=== PATIENT | female | born 1965 | race Caucasian/White ===

== ENCOUNTER 2018-11-06 06:50 | Day surgery (SDC) | payer OTHER ==
[2018-11-06] VITALS (18 sets, daily range): BP systolic 104–151; BP diastolic 46–76; PULSE 56–76; RESP 12–32; Ht 157.5 cm; Wt 82.0 kg
[~2018-11-06] VITALS: Ht 157.5 cm; Wt 82.0 kg
[2018-11-06] MEDS ORDERED: NEOSTIGMINE 10 MG INJ ONE (07:00)
[2018-11-06] MEDS ORDERED: AMLO5TAB4 PO (08:21)
[2018-11-06] MEDS ORDERED: ASPI81TA52 PO (08:22)
[2018-11-06] MEDS ORDERED: SIMV20TA PO (08:22)
[2018-11-06] MEDS ORDERED: PANT40TA3 PO (08:23)
[2018-11-06] MEDS ORDERED: ENAL10TA PO (08:23)
[2018-11-06] MEDS ORDERED: TOPI25TA10 PO (08:24)
[2018-11-06] MEDS ORDERED: CEFAZOLIN 2 GM/50 ML (PMX) 50 ML IVPB ONE (09:00)
[2018-11-06] MEDS ORDERED: SOD CHLORIDE 0.9% 1,000 ML IV SCH (09:00)
[2018-11-06] MEDS ORDERED: CEFAZOLIN 1 GM INJ ONE (09:35)
[2018-11-06] MEDS ORDERED: PROPOFOL 20 ML ONE (09:35)
[2018-11-06] MEDS ORDERED: GLYCOPYRROLATE 0.4 MG INJ ONE (09:35)
[2018-11-06] MEDS ORDERED: ROCURONIUM 50 MG INJ ONE (09:35)
[2018-11-06] MEDS ORDERED: DEXAMETHASONE 4 MG/ML 5 ML INJ ONE (09:36)
[2018-11-06] MEDS ORDERED: FENTAnyl 50 MCG/ML VIAL ONE (09:36)
[2018-11-06] MEDS ORDERED: ONDANSETRON 4 MG INJ ONE (09:36)
[2018-11-06] MEDS ORDERED: MIDAZOLAM 1 MG/ML 2 ML INJ ONE (09:36)
[2018-11-06] MEDS ORDERED: ROPIVACAINE 0.5 % 30 ML VIAL ONE (09:43)
--- NOTE | 2018-11-06 10:09 | PREAC ---
Date/Time of Note Date/Time of Note DATE: 11/06/18 TIME: 10:08 Anesthesia Eval and Record Evaluation Time Pre-Procedure Interview DATE: 11/06/18 TIME: 10:08 Age 53 Sex female NPO: 8 hrs Preoperative diagnosis GALL BLADER POLYP, SLUDGE Planned procedure LAP PARDEEP Past Medical History Past Medical History: Includes Cardio: HTN, Dyslipidemia Endo: Hyperthyroid GI: GERD Surgery & Anesthesia Issues No known issue Meds Anticoagulation: No Beta Yesenia within 24 hr: No Reason Beta Yesenia not given: Pt. not on B-Yesenia Reported Medications Topiramate* (Topiramate*) 25 Mg Tablet, 25 MG PO BID, TAB 11/06/18 Pantoprazole* (Protonix*) 40 Mg Tablet.dr, 40 MG PO DAILY, TAB 11/06/18 Enalapril Maleate* (Enalapril Maleate*) 10 Mg Tablet, 10 MG PO DAILY, TAB 11/06/18 Simvastatin* (Zocor*) 20 Mg Tablet, 20 MG PO QHS, #30 TAB 11/06/18 Aspirin (Low Dose Aspirin) 81 Mg Tablet.dr, 81 MG PO DAILY, #30 TAB 11/06/18 Amlodipine Besylate* (Norvasc*) 5 Mg Tablet, 5 MG PO DAILY, TAB 11/06/18 Current Medications Sodium Chloride 1,000 ml @ 75 mls/hr [id number] IV ; Start 11/06/18 at 09:00; Stop 11/06/18 at 22:19 Meds reviewed: Yes Allergies Coded Allergies: No Known Allergy (Unverified , 11/06/18) Allergies Reviewed: Yes Labs/Studies Labs Reviewed: Reviewed by anesthesiologist test: N/A Studies: ECG (NL) Pre-procedure Exam Last vitals Vital Signs Date Temp Pulse Resp B/P (MAP) Pulse Ox O2 O2 Flow FiO2 Time Delivery Rate 11/06/18 97.4 58 16 123/71 98 Room Air 08:33 (88) Airway: Adequate mouth opening, Adequate thyromental dist Mallampati: Mallampati II Teeth: Normal Lung: Normal Heart: Normal ASA Physical Status ASA physical status: 2 Emergency: None Planned Anesthetic General/MAC: ETT Nerve block: TAP (bilateral) Planned Pain Management Single shot nerve block, Parenteral pain med Pre-operative Attestations Prior to commencing anesthesia and surgery, the patient was re-evaluated, there was verification of: *The patient's identity *The results of appropriate recent lab work and preoperative vital signs *The above evaluation not changing prior to induction *Anesthetic plan, risk benefits, alternative and complications discussed with patient/family; questions answered; patient/family understands, accepts and wishes to proceed. Silvio Braswell M.D. Nov 06, 2018 10:09
[2018-11-06] MEDS ORDERED: IPRATROPIUM (NEB) 0.5 MG/2.5 ML AMP HHN PRN (10:30)
[2018-11-06] MEDS ORDERED: FENTAnyl 50 MCG/ML VIAL IV PRN ×2 (10:30)
[2018-11-06] MEDS ORDERED: ONDANSETRON 4 MG INJ IV PRN (10:30)
[2018-11-06] MEDS ORDERED: ALBUTEROL 0.083% (NEB) 2.5 MG/3 ML AMP HHN PRN (10:30)
[2018-11-06] MEDS ORDERED: MIDAZOLAM 1 MG/ML 2 ML INJ IV PRN (10:30)
[2018-11-06] MEDS ORDERED: LABETALOL HCL 20MG INJ IV PRN (10:30)
[2018-11-06] MEDS ORDERED: DIPHENHYDRAMINE 50 MG INJ IV PRN (10:30)
[2018-11-06] MEDS ORDERED: HYDROmorphONE 1 MG/5 ML IV SYRINGE IV PRN ×2 (10:30)
[2018-11-06] MEDS ORDERED: hydrALAzine 20 MG INJ IV PRN (10:30)
[2018-11-06] MEDS ORDERED: MEPERIDINE 25 MG INJ IV PRN (10:30)
[2018-11-06] MEDS ORDERED: EPHEDrine SULFATE 50 MG/5 ML SYG IV PRN (10:30)
[2018-11-06] MEDS ORDERED: TRIMETHOBENZAMIDE 100 MG/ML VIAL IM PRN (10:30)
[2018-11-06] MEDS ORDERED: OXYCODONE/ACETAMINOPHEN (5/325) TAB PO PRN ×2 (10:30)
[2018-11-06] MEDS ORDERED: LABETALOL HCL 20MG INJ ONE (10:59)
--- NOTE | 2018-11-06 11:09 | OPR ---
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 On imaging she was found to have a gallbladder polyp and sludge. She is brought here for a laparoscopic cholecystectomy. Risks alternatives benefits of percent were discussed the patient. Potential complications including but not limited to bleeding infection, bladder injury intra-abdominal organ injury need for additional operations were discussed the patient. Patient expressed understanding and consents to the operation. Procedure Description Patient is taken to the OR and prepped and draped in usual sterile fashion. Surgical time was performed. IV antibiotic given. Infraumbilical transverse incision was made with a 15 blade. Dissection with cautery carried onto the fascia. The fascia was grasped with [employer] and divided with curved Slaughter scissors. 0 Vicryl U stitch was placed into the fascia. Rodriguez trocar was introduced. Pneumoperitoneum is established. Midepigastric 12 mm optical trocar placed under direct position. Right upper quadrant upper flank 5 mm optical trochars were placed under direct position. Upon initial inspection there is some adhesions to the gallbladder which were taken down bluntly. The gallbladder was grasped the fundus and retracted in a lateral cephalad direction. [place] graspers were used to dissect out the cystic duct and cystic artery. The critical view of safety was established. The cystic duct is divided with 3 clips proximally clipped distal and the division was performed laparoscopic scissors. Cystic artery was divided to close proximally clipped distal and the division was performed laparoscopic scissors. The gallbladder was taken of the gallbladder bed. Good hemostasis established in the gallbladder bed. The gallbladder is retrieved Endo Catch bag. Suction irrigation is used minimally. Ports removed under direct position. 0 Vicryl sutures tied down. Skin is closed using skin compa. A tap block was provided by the anesthesiologist. Dry dressings were applied. Jose DE LA TORRE Nov 06, 2018 11:09
[2018-11-06] MEDS ORDERED: SUGAMMADEX SODIUM 200 MG/2 ML VIAL IV ONE (11:13)
[2018-11-06] MEDS: HYDROmorphONE 1 MG/5 ML IV SYRINGE IV PRN ×3 (11:29→12:19)
[2018-11-06] MEDS ORDERED: HYDROCODONE/APAP (5/325) TAB PO ONE (11:30)
[2018-11-06] MEDS: FENTAnyl 50 MCG/ML VIAL IV PRN ×4 (11:31→12:19)
--- NOTE | 2018-11-06 12:05 | PAC ---
Date/Time of Note Date/Time of Note DATE: 11/06/18 TIME: 12:05 Post-Anesthesia Notes Post-Anesthesia Note Last documented vital signs Vital Signs Date Temp Pulse Resp B/P (MAP) Pulse Ox O2 O2 Flow FiO2 Time Delivery Rate 11/06/18 98.3 75 14 141/76 100 Nasal 4.0 11:19 (97) Cannula Activity: WNL Respiratory function: WNL Cardiovascular function: WNL Mental status: Baseline Pain reasonably controlled: Yes Hydration appropriate: Yes Nausea/Vomiting absent: Yes Silvio Braswell M.D. Nov 06, 2018 12:05
== END 2018-11-06 15:00 | disposition home or self-care (01) ==
LOC: SDS 06:50
PROVIDERS: ATTEND Surgery
DX: K82.4 Cholesterolosis of gallbladder (principal); I10 Essential (primary) hypertension; E78.5 Hyperlipidemia, unspecified
CPT/HCPCS: 47562; 88304; J0690; J1100; J1170; J1200; J2175; J2250; J2405; J2710; J2795; J3010; Z7512; Z7610